=== PATIENT | male | born 1990 | race Caucasian/White ===

== ENCOUNTER 2024-10-21 08:45 | Day surgery (SDC) | payer BC, SELFPAY ==
--- NOTE | 2024-10-19 11:09 | EKG_ITS ---
[facility] Test Date: 2024-10-19 Pat Name: REGGIE MCLEOD Department: Room: - Gender: Male Building [employer]: MAYRA : 1990 Requested By: Alverto Mendez Order Number: [id number] Reading MD: Alverto Mendez Measurements Intervals [place] Rate: 84 P: 66 MS: 160 QRS: 109 QRSD: 80 T: 39 QT: 369 QTc: 437 Interpretive Statements SINUS RHYTHM MARKED RIGHT AXIS DEVIATION [QRS AXIS > 100] No previous ECG available for comparison [id number]
[2024-10-19 11:34] LABS: Partial Thromboplastin Time 28.2 Seconds (22.0-36.0); Prothrombin Time 10.8 Seconds (9.0-12.2)
[2024-10-19 11:53] LABS: Alanine Aminotransferase 19 U/L (10-49); Albumin, Serum 4.4 gm/dL (3.5-5.0); Alkaline Phosphatase 79 U/L (46-116); Anion Gap 8 (7-16); BUN/Creatinine Ratio 15 Ratio (12-20); Bilirubin,Total 0.6 mg/dL (0.3-1.2); Blood Urea Nitrogen 16 mg/dL (9-23); Calcium 9.2 mg/dL (8.3-10.6); Calcium (Corrected) 9.2 mg/dL (8.5-10.1); Carbon Dioxide 29.9 mMol/L (20.0-31.0); Chloride 105 mMol/L (98-107); Creatinine (Component) 1.1 mg/dL (0.6-1.3); Globulin 2.2 gm/dL (2.3-3.5); Glucose 102 mg/dL (74-106); Osmolality,Calculated 286 (275-295); Potassium 3.8 mMol/L (3.4-5.1); Sodium 143 mMol/L (136-145); Total Protein 6.6 gm/dL (5.7-8.2); eGFR > 60 See Note
[2024-10-21 09:20] VITALS: BP 138/99; PULSE 95; RESP 16; TEMP 36.7; O2SAT 98; BMI 28.0
[2024-10-21] MEDS: RINGERS LACTATED 1000 ML 1,000 ML 125 ML IV (10:38)
[2024-10-21 10:56] VITALS: BP 129/86; PULSE 94; RESP 16; TEMP 36.4; O2SAT 97
[2024-10-21 11:06] VITALS: BP 136/98; PULSE 95; RESP 21; O2SAT 100
[2024-10-21 11:16] VITALS: BP 143/95; PULSE 86; RESP 13; O2SAT 99
[2024-10-21 11:40] VITALS: BP 141/102; PULSE 88; RESP 17; O2SAT 100
== END 2024-10-21 11:40 | disposition home or self-care (01) ==
PROVIDERS: PCP Family Medicine; Referring Provider Specialist; Visit Provider Specialist
PROC: 0DBE8ZX Excision of Large Intestine, Via Natural or Artificial Opening Endoscopic, Diagnostic (ICD-10-PCS; CPT 45380; principal; 2024-10-21 10:00)
DX: K62.89 Other specified diseases of anus and rectum (principal); K64.9 Unspecified hemorrhoids
CPT/HCPCS: 45380; 36415; 80053; 85610; 85730; 93005; J7120